=== PATIENT | female | born 1945 | race Two or more races ===

== ENCOUNTER 2022-11-15 16:28 | Emergency (ER) | payer MEDICARE, OTHER ==
[~2022-11-15] VITALS: Ht 162.6 cm; Wt 75.0 kg
[~2022-11-15 16:28] MED LIST: AMLO-257 PO; GLIP10TA10 PO; HYDR-4061 PO; LOSA-382 PO; METF-1211 PO; METO50 PO; PRED-554 PO; VALA500T42 PO
[2022-11-15] MEDS ORDERED: CHOL200059 PO (16:45)
[2022-11-15] MEDS ORDERED: ATOR10TA69 PO (16:45)
[2022-11-15] MEDS ORDERED: LISI10TA24 PO (16:45)
[2022-11-15] MEDS ORDERED: AMLO10TA55 PO (16:45)
[2022-11-15] MEDS ORDERED: LIRA0.6P2 SQ (16:45)
[2022-11-15] MEDS ORDERED: METO100T14 PO (16:45)
[2022-11-15] MEDS ORDERED: GABA-1181 PO (16:45)
[2022-11-15] MEDS ORDERED: HYDROCODONE/ACETAMINOPHEN 5-325 MG TABLET PO ONE (18:00)
[2022-11-15 18:08] VITALS: BP 144/77
[2022-11-15 18:31] LABS: BASOPHILS % (AUTO) 0.8 % (0.0-2.0); EOSINOPHILS % (AUTO) 2.1 % (1.0-6.0); HEMATOCRIT 42.4 % (36-46); LYMPHOCYTES # (AUTO) 1.9 K/uL (1.0-4.8); LYMPHOCYTES % (AUTO) 34.7 % (22.0-44.0); MEAN CORPUSCULAR HEMOGLOBIN 29.7 pg (26.0-34.0); MEAN CORPUSCULAR VOLUME 90 fL (80-100); MONOCYTES # (AUTO) 0.5 K/uL (0.1-1.0); MONOCYTES % (AUTO) 9.7 % (2.0-9.0); NEUTROPHILS # (AUTO) 2.9 K/uL (1.8-7.7); NEUTROPHILS % (AUTO) 52.7 % (40.0-70.0); PLATELET COUNT (AUTO) 260 K/uL (150-450); RED CELL DISTRIBUTION WIDTH 13.9 % (11.5-14.5)
[2022-11-15 18:40] LABS: ANION GAP 8 mmol/L (8-16); CALCIUM, TOTAL 10.5 mg/dL (8.8-10.5); CARBON DIOXIDE 30 mmol/L (22-29); CHLORIDE 105 mmol/L (98-107); CREATININE 0.56 mg/dL (0.60-1.30); GLOMERULAR FILTR. RATE CALC > 60 mL/min (>60); GLUCOSE,RANDOM 150 mg/dL (70-110); POTASSIUM 4.2 mmol/L (3.5-5.1); SODIUM SERUM 143 mmol/L (136-145); UREA NITROGEN, BLOOD 16 mg/dL (7-18)
[2022-11-15 18:46] LABS: ALANINE AMINOTRANSFERASE 16 U/L (12-78); ALKALINE PHOSPHATASE 98 U/L (46-116); ASPARTATE AMINOTRANSFERASE 18 U/L (15-37); BILIRUBIN,TOTAL 0.2 mg/dL (0.1-1.0)
[2022-11-15 20:18] LABS: APPEARANCE,URINE CLEAR (CLEAR); BILIRUBIN,URINE NEGATIVE (NEGATIVE); GLUCOSE, URINE (UA) NEGATIVE (NEGATIVE); KETONES,URINE NEGATIVE (NEGATIVE); LEUKOCYTE ESTERASE ,URINE NEGATIVE (NEGATIVE); NITRATE,URINE NEGATIVE (NEGATIVE); OCCULT BLOOD,URINE NEGATIVE (NEGATIVE); PROTEIN,URINE NEGATIVE (NEGATIVE); SPECIFIC GRAVITIY, URINE 1.007 (1.003-1.030); UROBILINOGEN,URINE <=1.0 mg/dL (<=1.0)
[2022-11-15] MEDS ORDERED: CYCL-448 PO (20:28)
[2022-11-15] MEDS ORDERED: TRAM-559 PO (20:28)
== END 2022-11-15 20:37 | disposition home or self-care (01) ==
LOC: EMS 16:29
DX: M54.50 Low back pain, unspecified (principal); E11.9 Type 2 diabetes mellitus without complications; I10 Essential (primary) hypertension; Z79.899 Other long term (current) drug therapy; Z79.84 Long term (current) use of oral hypoglycemic drugs
CPT/HCPCS: 72100; 80053; 81003; 82962; 85025; 99284